=== PATIENT | female | born 1980 | race American Indian/Alaskan Native ===

== ENCOUNTER 2017-11-05 01:37 | Emergency (ER) | payer BC, OTHER ==
[2017-11-05 01:44] VITALS: BMI 30.7
--- NOTE | 2017-11-05 01:59 | ED PDOC ---
Arrival/HPI - General Chief Complaint: Back Pain Time Seen by Provider: 11/05/17 01:44 Historian: Patient - History of Present Illness Narrative History of Present Illness (Text): 11/05/17 01:57 A 37 year old female, whose past medical history includes HTM, presents to the emergency department for a complaint of left upper back pain and right leg pain. The patient states that she has been experiencing the left upper back pain since this morning. She notes right leg pain has been persistent for the past few days. The patient states that she recently had a stress test and echocardiogram done recently. She notes that she has a family history of blood clots. The patient denies fevers, chills, headache, dizziness, chest pain, shortness of breath, dyspnea on exertion, cough, abdominal pain, nausea, vomiting, diarrhea, neck pain, urinary/bowel changes, or any other complaint. PMD: Dr. Cristi Berg Time/Duration: Other (This Morning) Symptom Onset: Sudden Symptom Course: Unchanged Activities at Onset: Rest, Light Context: Home Past Medical History - Provider Review Nursing Documentation Reviewed: Yes - Infectious Disease Hx of Infectious Diseases: None - Cardiac Hx Hypertension: Yes - Hematological/Oncological Hx Anemia: Yes (Fe Def due to menometrorrhagia- pending OBGYN f/u for elective Hyst next wk) - Musculoskeletal/Rheumatological Hx Falls: No - Gastrointestinal Hx Pancreatitis: Yes - Psychiatric Hx Depression: No Hx Substance Use: No - Surgical History Hx Section: Yes Hx Cholecystectomy: Yes Other/Comment: uterus - Anesthesia Hx Anesthesia: Yes Hx Anesthesia Reactions: No Hx Malignant Hyperthermia: No - Suicidal Assessment Feels Threatened In Home Enviroment: No Family/Social History - Physician Review Nursing Documentation Reviewed: Yes Family/Social History: No Known Family HX Smoking Status: Never Smoked Hx Alcohol Use: Yes Hx Substance Use: No Hx Substance Use Treatment: No Allergies/Home Meds Allergies/Adverse Reactions: Allergies No Known Allergies Allergy (Verified 07/09/14 11:55) Home Medications: Home Meds Medication Instructions Recorded Confirmed Aspirin [Aspirin Chewable] 1 tab PO DAILY 11/05/17 11/05/17 Metoprolol Tartrate [Lopressor] 1 tab PO DAILY 11/05/17 11/05/17 Review of Systems - Review of Systems Constitutional: absent: Fevers, Night Sweats ENT: absent: Sore Throat Respiratory: absent: SOB, Cough Cardiovascular: absent: Chest Pain, DC Gastrointestinal: absent: Abdominal Pain, Stool Changes, Diarrhea, Nausea, Vomiting Genitourinary Female: absent: Urine Output Changes Musculoskeletal: Back Pain (Left upper back pain. ), Other (Right leg pain). absent: Neck Pain Neurological: absent: Headache, Dizziness Physical Exam - Physical Exam Narrative Physical Exam (Text): 0 Vital Signs Reviewed: Yes Vital Signs Temp Pulse Resp BP Pulse Ox 11/05/17 01:38 98.3 F 78 18 142/93 H 99 Temperature: Afebrile Blood Pressure: Normal Pulse: Regular Respiratory Rate: Normal Appearance: Positive for: Well-Appearing, Non-Toxic, Comfortable Pain Distress: None Mental Status: Positive for: Alert and Oriented X 3 - Systems Exam Head: Present: Atraumatic, Normocephalic Pupils: Present: PERRL Extroacular Muscles: Present: EOMI Conjunctiva: Present: Normal Mouth: Present: Moist Mucous Membranes Neck: Present: Normal Range of Motion Respiratory/Chest: Present: Clear to Auscultation, Good Air Exchange. No: Respiratory Distress, Accessory Muscle Use Cardiovascular: Present: Regular Rate and Rhythm, Normal S1, S2. No: Murmurs Abdomen: No: Tenderness, Distention, Peritoneal Signs Back: Present: Other (Left parathoracic spinal teenderness.) Upper Extremity: Present: Normal Inspection. No: Cyanosis, Edema Lower Extremity: Present: Normal Inspection. No: Edema Neurological: Present: GCS=15, CN II-XII Intact, Speech Normal Skin: Present: Warm, Dry, Normal Color. No: Rashes Psychiatric: Present: Alert, Oriented x 3, Normal Insight, Normal Concentration Medical Decision Making ED Course and Treatment: 11/05/17 02:00 Impression: A 37 year old female presents to the emergency department for a complaint of right leg pain and left upper back pain. Plan: -- EKG -- Lower Extremity Ultrasound -- Chest X-ray -- Labs -- Urinalysis -- Tylenol -- Reassess and disposition Progress Notes: 11/05/17 04:04: Patient notes that she is anemic with a hemoglobin of 9 due to heavy menstrual bleeding. Patient is offered a transfusion, she declines and is requesting to be discharged. Reevaluation: On reevaluation the patient feels better and is in no acute distress. I have discussed the results and plan with the patient, who expresses understanding. Patient given the opportunity to ask question, all questions were answered and there is agreement with the plan to discharge. Patient is stable for discharge. Patient was instructed to follow up with physician/clinic in 1-2 days or return if symptoms persist/worsen or new concerning symptoms arise. 11/05/17 19:51 pt reaassesed pain improved. cxr neg as read by me. labs unremakrable. stable for dc. - Lab Interpretations Lab Results: 11/05/17 02:40 11/05/17 02:40 Lab Results 11/05/17 03:20: Urine Color Yellow, Urine Appearance Clear, Urine pH 6.0, Ur Specific [place] 1.025, Urine Protein Negative, Urine Glucose (UA) Negative, Urine Ketones Negative, Urine Blood Trace-intact H, Urine Nitrate Negative, Urine Bilirubin Negative, Urine Urobilinogen 0.2, Ur Leukocyte Esterase Negative , Urine RBC 0 - 2, Urine WBC 0 - 2, Ur Epithelial Cells 0 - 2, Urine Bacteria Few 11/05/17 02:40: Sodium 141, Potassium 4.1, Chloride 107, Carbon Dioxide 24, Anion Gap 15, BUN 11, Creatinine 0.6 L, Est GFR ( Amer) > 60, Est GFR ( Non-Af Amer) > 60, Random Glucose 118 H, Calcium 8.9, Magnesium 1.8, Total Bilirubin 0.3, AST 34, ALT 26, Alkaline Phosphatase 81, Lactate Dehydrogenase 733 H, Total Creatine Kinase 151, Troponin I < 0.01, Total Protein 7.3, Albumin 3.8, Globulin 3.5, Albumin/Globulin Ratio 1.1 11/05/17 02:40: PT 12.3, INR 1.08, APTT 24.0 L, D-Dimer, Quantitative < 200 11/05/17 02:40: WBC 6.0, RBC 4.05, Hgb 8.7 L, Hct 28.8 L, MCV 71.1 L, MCH 21.5 L , MCHC 30.2 L, RDW 16.9 H, Plt Count 322, MPV 8.4, Gran % 49.3 L, Lymph % (Auto ) 39.5 H, [place] % (Auto) 7.5 H, Eos % (Auto) 2.5, Baso % (Auto) 1.2, Gran # 2.97 , Lymph # (Auto) 2.4, [place] # (Auto) 0.5, Eos # (Auto) 0.2, Baso # (Auto) 0.07 I have reviewed the lab results: Yes - RAD Interpretation Radiology Orders: 11/05/17 01:57 DUPLEX LOWER EXTRM VEIN BILAT [US] Stat 11/05/17 01:59 CHEST TWO VIEWS (PA/LAT) [RAD] Stat - EKG Interpretation Interpreted by ED Physician: Yes Type: 12 lead EKG - Medication Orders Current Medication Orders: Discontinued Medications Acetaminophen (Tylenol 325mg Tab) 975 mg PO STAT STA Stop: 11/05/17 01:59 Last Admin: 11/05/17 02:49 Dose: 975 mg - Scribe Statement The provider has reviewed the documentation as recorded by the Garima White Provider Scribe Attestation: All medical record entries made by the Scribe were at my direction and personally dictated by me. I have reviewed the chart and agree that the record accurately reflects my personal performance of the history, physical exam, medical decision making, and the department course for this patient. I have also personally directed, reviewed, and agree with the discharge instructions and disposition. Disposition/Present on Arrival - Present on Arrival Any Indicators Present on Arrival: No History of DVT/PE: No History of Uncontrolled Diabetes: No Urinary Catheter: No History of Decub. Ulcer: No History Surgical Site Infection Following: None - Disposition Have Diagnosis and Disposition been Completed?: Yes Diagnosis: Anemia, Back pain, Leg cramps Disposition: HOME/ ROUTINE Disposition Time: 07:00 Condition: STABLE Discharge Instructions (ExitCare): Upper Back Pain (DC), Nocturnal (Nighttime) Leg Cramps (DC), Normocytic Normochromic Anemia Additional Instructions: please follow up with your doctor. return to er with worsening symptoms or concerns. Prescriptions: Naproxen 500 mg PO BID PRN #14 tab PRN Reason: Pain, Mild (1-3) Referrals: Aurora Berg DO [Primary Care Provider] - Follow up with primary Forms: [facility] ([place])
[2017-11-05 02:12] VITALS: BP 142/93; PULSE 78; RESP 18; TEMP 98.3; O2SAT 99
[2017-11-05 02:47] LABS: BASO # 0.07 K/mm3 (0.0-2.0); BASO % 1.2 % (0.0-3.0); EOS # 0.2 (0.0-0.7); EOS % 2.5 % (1.5-5.0); GRAN # 2.97 (1.4-6.5); GRAN % 49.3 % (50.0-68.0); HEMOGLOBIN 8.7 g/dL (12.0-16.0); LYMPH # 2.4 (1.2-3.4); LYMPH % 39.5 % (22.0-35.0); MEAN CELL VOLUME 71.1 fl (80.0-105.0); MEAN CORPUSCULAR HEMOGLOBIN 21.5 pg (25.0-35.0); MEAN CORPUSCULAR HGB CONC 30.2 g/dl (31.0-37.0); MEAN PLATELET VOLUME 8.4 fl (7.0-11.0); MONO # 0.5 (0.1-0.6); MONO % 7.5 % (1.0-6.0); RBC 4.05 10^6/uL (3.5-6.1); RED CELL DISTRIBUTION WIDTH 16.9 % (11.5-14.5)
[2017-11-05 02:57] LABS: ALB/GLOB RATIO 1.1 (1.1-1.8); ALBUMIN 3.8 g/dL (3.0-4.8); CALCIUM 8.9 mg/dL (8.4-10.5); GFR AFRICAN-AMERICAN > 60; GFR NON-AFRICAN AMERICAN > 60
[2017-11-05 03:04] LABS: INR 1.08 (0.93-1.08); PROTHROMBIN TIME 12.3 SECONDS (9.4-12.5)
[2017-11-05 03:05] LABS: D DIMER < 200 ng/mL (0-243)
[2017-11-05 03:08] LABS: TROPONIN I < 0.01 ng/mL
[2017-11-05 03:34] LABS: URINE BILIRUBIN NEGATIVE (NEGATIVE); URINE BLOOD TRACE-INTACT (NEGATIVE); URINE GLUCOSE (UA) NEGATIVE (NEGATIVE); URINE LEUKOCYTE ESTERASE NEGATIVE Leu/uL (NEGATIVE); URINE PROTEIN NEGATIVE mg/dL (<30 mg/dL); URINE UROBILINOGEN 0.2 E.U./dL (<1 E.U./dL)
[2017-11-05 03:35] LABS: URINE APPEARANCE CLEAR (CLEAR); URINE COLOR YELLOW (YELLOW)
[2017-11-05 03:37] LABS: ALT/SGPT 26 U/L (7-56); AST/SGOT 34 U/L (14-36); BLOOD UREA NITROGEN 11 mg/dL (7-21)
[2017-11-05 04:16] LABS: URINE BACTERIA FEW (NEG); URINE EPITHELIAL CELLS 0 - 2 /hpf (0-5); URINE RBC 0 - 2 /hpf (0-2); URINE WBC 0 - 2 /hpf (0-6)
--- NOTE | 2017-11-05 09:17 | RAD ---
HISTORY: cp COMPARISON: 03/06/2012 TECHNIQUE: Chest PA and lateral FINDINGS: LUNGS: No active pulmonary disease. PLEURA: No significant pleural effusion identified. No pneumothorax apparent. CARDIOVASCULAR: Normal. OSSEOUS STRUCTURES: No significant abnormalities. VISUALIZED UPPER ABDOMEN: Normal. OTHER FINDINGS: None. IMPRESSION: No active disease.
--- NOTE | 2017-11-06 18:39 | US ---
HISTORY: Leg pain and swelling. Evaluate for DVT PHYSICIAN(S): Calin Kim MD. TECHNIQUE: Duplex sonography and color-flow Doppler with graded compression were used to evaluate the deep venous systems of both lower extremities. FINDINGS: The visualized deep venous systems of both lower extremities are sonographically normal and compressible. Normal wave forms and augmentation are seen. There is no sonographic evidence for deep venous thrombosis in the visualized segments of both lower extremities. IMPRESSION: No sonographic evidence for deep venous thrombosis in the visualized segments of both lower extremities.
== END 2017-11-05 04:22 | disposition home or self-care (01) ==
LOC: ED 01:37
DX: D64.9 Anemia, unspecified (principal); M54.6 Pain in thoracic spine; R25.2 Cramp and spasm

== ENCOUNTER 2018-03-02 09:45 | Observation (INO) | payer BC, OTHER ==
[~2018-03-02 09:45] MED LIST: DiphenhydrAMINE 50 mg/ml Inj IVP ONE
[2018-03-02] MEDS ORDERED: Sodium Chloride 0.9% 1,000 ML IV STA (11:12)
[2018-03-02 11:52] LABS: URINE BILIRUBIN NEGATIVE (NEGATIVE); URINE BLOOD SMALL (NEGATIVE); URINE GLUCOSE (UA) NEGATIVE (NEGATIVE); URINE LEUKOCYTE ESTERASE NEGATIVE Leu/uL (NEGATIVE); URINE PROTEIN NEGATIVE mg/dL (<30 mg/dL); URINE UROBILINOGEN 0.2 E.U./dL (<1 E.U./dL)
[2018-03-02 11:56] LABS: URINE APPEARANCE CLEAR (CLEAR); URINE COLOR YELLOW (YELLOW)
[2018-03-02 11:59] LABS: URINE BACTERIA MANY (NEG); URINE EPITHELIAL CELLS MANY /hpf (0-5); URINE WBC 0 - 2 /hpf (0-6)
[2018-03-02 12:03] LABS: BASO # 0.04 K/mm3 (0.0-2.0); BASO % 0.8 % (0.0-3.0); EOS # 0.1 (0.0-0.7); EOS % 2.1 % (1.5-5.0); GRAN # 2.03 (1.4-6.5); GRAN % 42.6 % (50.0-68.0); HEMOGLOBIN 10.3 g/dL (12.0-16.0); LYMPH # 2.2 (1.2-3.4); LYMPH % 45.9 % (22.0-35.0); MEAN CELL VOLUME 72.4 fl (80.0-105.0); MEAN CORPUSCULAR HEMOGLOBIN 21.7 pg (25.0-35.0); MEAN CORPUSCULAR HGB CONC 29.9 g/dl (31.0-37.0); MEAN PLATELET VOLUME 8.3 fl (7.0-11.0); MONO # 0.4 (0.1-0.6); MONO % 8.6 % (1.0-6.0); RBC 4.75 10^6/uL (3.5-6.1); RED CELL DISTRIBUTION WIDTH 20.2 % (11.5-14.5); WHITE BLOOD COUNT 4.8 10^3/ul (4.5-11.0)
--- NOTE | 2018-03-02 12:16 | CT ---
Date of service: 03/02/2018 PROCEDURE: CT HEAD WITHOUT CONTRAST. HISTORY: Headache COMPARISON: 10/10/2012. TECHNIQUE: Axial computed tomography images were obtained through the head/brain without intravenous contrast. Radiation dose: Total exam DLP = 900.96 mGy-cm. This CT exam was performed using one or more of the following dose reduction techniques: Automated exposure control, adjustment of the mA and/or kV according to patient size, and/or use of iterative reconstruction technique. FINDINGS: HEMORRHAGE: No intracranial hemorrhage. BRAIN: Horn-white matter differentiation is preserved. There is no mass, mass effect or abnormal extra-axial fluid collection. There is no territorial infarction. The midline sagittal structures are normal. VENTRICLES: The ventricles are normal in size, shape and configuration. CALVARIUM: The skull base and calvarium are normal. PARANASAL SINUSES: Predominantly clear. MASTOID AIR CELLS: Predominantly clear. OTHER FINDINGS: None. IMPRESSION: No acute intracranial abnormality.
--- NOTE | 2018-03-02 12:28 | ED PDOC ---
Arrival/HPI - General Chief Complaint: Syncope Time Seen by Provider: 03/02/18 11:11 Historian: Patient - History of Present Illness Narrative History of Present Illness (Text): 03/02/18 11:05 37 year old female, whose past medical history includes anemia and syncopal episodes, who presents to the Emergency department complaining of not feeling well and feeling weak all over for the last couple of days, and a pulsing headache toward front of head. Patient notes she has been having really bad migraines. Patient states she was out of work last year due to the syncopal episodes, noting she never found out the reason for them and still having same symptoms as before. Patient states she is sometimes dizzy, based on how she m oves and says she has never been diagnosed with vertigo. Patient notes no significant relief from Motrin, and has to take Excedrin (usually 2 at a time). Patient states that she frequently has pulsating headaches at anterior and posterior of head. Patient notes sensitivity to light, some blurred vision, dizziness on standing, non-reproducable left-sided intermittent chest pain at rest and shortness of breath only when going up stairs. Patient denies any recent trauma, numbness, tingling, current nausea, nausea, abdominal pain, or any other complaints. PMD: Dr. Aurora Berg Neurologist: [place] [place] Time/Duration: > week (pt notes feeling unwell and weakness all over since past few days) Symptom Onset: Gradual Symptom Course: Unchanged Activities at Onset: Light Past Medical History - Provider Review Nursing Documentation Reviewed: Yes - Infectious Disease Hx of Infectious Diseases: None - Cardiac Hx Cardiac Disorders: Yes Hx Hypertension: Yes - Pulmonary Hx Respiratory Disorders: No - Neurological Hx Neurological Disorder: Yes Hx Migraine: Yes Hx Syncope: Yes - HEENT Hx HEENT Disorder: No - Renal Hx Renal Disorder: No - Endocrine/Metabolic Hx Endocrine Disorders: No - Hematological/Oncological Hx Blood Disorders: Yes Hx Anemia: Yes - Integumentary Hx Dermatological Disorder: No - Musculoskeletal/Rheumatological Hx Musculoskeletal Disorders: No - Gastrointestinal Hx Gastrointestinal Disorders: Yes Hx Pancreatitis: Yes - Genitourinary/Gynecological Hx Genitourinary Disorders: No - Psychiatric Hx Psychophysiologic Disorder: Yes Hx Anxiety: Yes Hx Depression: Yes Hx Substance Use: No - Surgical History Hx Cholecystectomy: Yes - Anesthesia Hx Anesthesia: Yes Hx Anesthesia Reactions: No Hx Malignant Hyperthermia: No - Suicidal Assessment Feels Threatened In Home Enviroment: No Family/Social History - Physician Review Nursing Documentation Reviewed: Yes Family/Social History: No Known Family HX Smoking Status: Never Smoked Hx Alcohol Use: No Hx Substance Use: No Hx Substance Use Treatment: No Allergies/Home Meds Allergies/Adverse Reactions: Allergies No Known Allergies Allergy (Verified 03/02/18 15:59) Home Medications: Home Meds Medication Instructions Recorded Confirmed RX: Aspirin [Aspirin Chewable] 1 tab PO DAILY 11/05/17 03/02/18 RX: Metoprolol Tartrate [Lopressor] 1 tab PO DAILY 11/05/17 03/02/18 Review of Systems - Physician Review All systems were reviewed & negative as marked: Yes - Review of Systems Constitutional: Fatigue (pt notes not feeling well/weak all over for last couple of days), Other (pt denies recent trauma). absent: Normal Eyes: Vision Changes (pt notes some blurred vision), Photophobia (patient notes sensitivity to light). absent: Normal Respiratory: SOB (pt notes SOB, but only when going up stairs). absent: Normal Cardiovascular: Chest Pain (pt notes non-reproducible left-sided intermittent chest pain at rest), Syncope (pt notes history of syncopal episodes). absent: Normal Gastrointestinal: absent: Abdominal Pain, Nausea (pt denies current nausea) Neurological: Headache (pt notes she frequently has pulsating headaches, both at anterior and posterior of head. notes recent severe migraines.), Dizziness (pt notes dizziness on standing. states she is sometimes dizzy depending on how she moves), Other (pt denies numbness/tingling). absent: Normal Physical Exam Vital Signs Reviewed: Yes Vital Signs Temp Pulse Resp BP Pulse Ox 03/02/18 10:01 74 03/02/18 09:46 98.9 F 83 16 144/90 100 Temperature: Afebrile Blood Pressure: Normal Pulse: Regular Respiratory Rate: Normal Appearance: Positive for: Well-Appearing, Non-Toxic, Comfortable Pain Distress: None Mental Status: Positive for: Alert and Oriented X 3 - Systems Exam Head: Present: Atraumatic, Normocephalic Pupils: Present: PERRL Extroacular Muscles: Present: EOMI Conjunctiva: Present: Normal Mouth: Present: Moist Mucous Membranes Neck: Present: Normal Range of Motion Respiratory/Chest: Present: Clear to Auscultation, Good Air Exchange. No: Respiratory Distress, Accessory Muscle Use Cardiovascular: Present: Regular Rate and Rhythm, Normal S1, S2. No: Murmurs Abdomen: No: Tenderness, Distention, Peritoneal Signs Back: Present: Normal Inspection Upper Extremity: Present: Normal Inspection. No: Cyanosis, Edema Lower Extremity: Present: Normal Inspection. No: Edema Neurological: Present: GCS=15, CN II-XII Intact, Speech Normal, Motor Func Grossly Intact, Normal Sensory Function (motor senses equal upper and lower. ), Gait Normal, Other (normal finger to nose test. No pronator drift. No Romber noted. No facial assymetry ) Skin: Present: Warm, Dry, Normal Color. No: Rashes Psychiatric: Present: Alert, Oriented x 3, Normal Insight, Normal Concentration Medical Decision Making ED Course and Treatment: 03/02/18 11:05 Impression: 37 year old female presents to the Emergency department complaining of not feeling well and feeling weak all over for the last couple of days, and a pulsating headache toward front of head. Differential Diagnosis included but are not limited to: - Vasovagal syncope - Orthostatic hypotension - TIA - Seizure - Brugada syndrome* Plan: -- CT of head w/o contrast -- EKG -- Labs -- CBC (with differential) -- Antivert, 25 mg PO -- Reglan, 10 mg IVP -- IV fluids -- POC Urine test -- Urinalysis w/micro -- Reassess and disposition Prior Visits: Notes and results from previous visits were reviewed. Patient was last seen in the emergency department on 12/12/17 for complaints of intermittent back pain, chest pain, and SOB that began the week prior to arrival. Patient was discharged home in fair condition and directed to return if symptoms recurred. Progress Notes: 03/02/18 13:53 Labs reviewed with no outstanding findings. CTH unremarkable for intracranial findings. Patient reassessed and does not feel better despite interventions taken in the ED. Spoke to Dr. Irwin(internal medicine) who accepts patient onto his service and requests Dr. Nash(neurology) for consult. - Lab Interpretations Lab Results: 03/02/18 11:45 Lab Results 03/02/18 11:45: Urine Color Yellow, Urine Appearance Clear, Urine pH 6.0, Ur Specific [place] >= 1.030, Urine Protein Negative, Urine Glucose (UA) Negative, Urine Ketones Negative, Urine Blood Small H, Urine Nitrate Negative, Urine Bilirubin Negative, Urine Urobilinogen 0.2, Ur Leukocyte Esterase Negative, Urine RBC 5 - 10, Urine WBC 0 - 2, Ur Epithelial Cells Many, Urine Bacteria Many 03/02/18 11:45: WBC 4.8, RBC 4.75, Hgb 10.3 L, Hct 34.4 L, MCV 72.4 L, MCH 21.7 L, MCHC 29.9 L, RDW 20.2 H, Plt Count 331, MPV 8.3, Gran % 42.6 L, Lymph % (Auto) 45.9 H, [place] % (Auto) 8.6 H, Eos % (Auto) 2.1, Baso % (Auto) 0.8, Gran # 2.03, Lymph # (Auto) 2.2, [place] # (Auto) 0.4, Eos # (Auto) 0.1, Baso # (Auto) 0.04 - RAD Interpretation Narrative RAD Interpretations (Text): CT of head reviewed by radiologist, shows: Dictator : Mabel Ash MD Report Date : 03/02/2018 12:14:11 FINDINGS: HEMORRHAGE: No intracranial hemorrhage. BRAIN: Horn-white matter differentiation is preserved. There is no mass, mass effect or abnormal extra-axial fluid collection. There is no territorial infarction. The midline sagittal structures are normal. VENTRICLES: The ventricles are normal in size, shape and configuration. CALVARIUM: The skull base and calvarium are normal. PARANASAL SINUSES: Predominantly clear. MASTOID AIR CELLS: Predominantly clear. OTHER FINDINGS: None. IMPRESSION: No acute intracranial abnormality. Radiology Orders: 03/02/18 11:11 HEAD W/O CONTRAST [CT] Stat Guest Services Coordinator: Radiologist - EKG Interpretation EKG Interpretation (Text): 03/02/18 EKG: Ordered, reviewed, and independently interpreted the EKG. Rate : 73 BPM Interpretation : Normal sinus rhythm. No ST elevations. Interpreted by ED Physician: Yes Type: 12 lead EKG - Medication Orders Current Medication Orders: Discontinued Medications Sodium Chloride (Sodium Chloride 0.9%) 1,000 mls @ 999 mls/hr IV .Q1H1M STA Stop: 03/02/18 12:12 Last Admin: 03/02/18 12:00 Dose: 999 mls/hr eMAR Start Stop Document 03/02/18 12:00 GMD (Rec: 03/02/18 12:00 GMD [id number]) Intravenous Solution Start Date 03/02/18 Start Time 12:00 End Date 03/02/18 End time 13:01 Total Infusion Time 61 Meclizine HCl (Antivert) 25 mg PO STAT STA Stop: 03/02/18 11:13 Last Admin: 03/02/18 12:00 Dose: 25 mg Metoclopramide HCl (Reglan) 10 mg IVP STAT STA Stop: 03/02/18 11:13 Last Admin: 03/02/18 12:00 Dose: 10 mg IVP Administration Document 03/02/18 12:00 GMD (Rec: 03/02/18 12:00 GMD [id number]) Charges for Administration # of IVP Administrations 1 - Scribe Statement The provider has reviewed the documentation as recorded by the Scribdallin Shaw All medical record entries made by the Andreaibdallin were at my direction and personally dictated by me. I have reviewed the chart and agree that the record accurately reflects my personal performance of the history, physical exam, medical decision making, and the department course for this patient. I have also personally directed, reviewed, and agree with the discharge instructions and disposition. Disposition/Present on Arrival - Present on Arrival Any Indicators Present on Arrival: No History of DVT/PE: No History of Uncontrolled Diabetes: No Urinary Catheter: No History of Decub. Ulcer: No History Surgical Site Infection Following: None - Disposition Have Diagnosis and Disposition been Completed?: Yes Diagnosis: Headache Disposition: HOSPITALIZED
[2018-03-02 13:04] LABS: ALB/GLOB RATIO 1.1 (1.1-1.8); ALBUMIN 4.1 g/dL (3.0-4.8); ALT/SGPT 17 U/L (7-56); AST/SGOT 27 U/L (14-36); BLOOD UREA NITROGEN 8 mg/dL (7-21); CALCIUM 9.3 mg/dL (8.4-10.5); GFR NON-AFRICAN AMERICAN > 60
[2018-03-02 13:15] LABS: TROPONIN I < 0.01 ng/mL
[2018-03-02] MEDS ORDERED: DiphenhydrAMINE 50 mg/ml Inj IVP STA (13:49)
[2018-03-02 14:44] VITALS: O2SAT 98
--- NOTE | 2018-03-02 16:01 | CARD ---
APPROVED REPORT Date of service: 03/02/2018 EKG Measurement Heart [id number] [id number] <Conclusion> Normal sinus rhythm Anteroseptal infarct, age undetermined Abnormal ECG
[2018-03-02] MEDS ORDERED: methylPREDNISolone 500 MG in Sodium Chloride 0.9% 100 ML IVPB ONE (17:16)
[2018-03-02] MEDS ORDERED: Magnesium Sulfate 1 gm in D5W 1 GM/100 ML BAG IVPB ONE (17:18)
[2018-03-02] MEDS ORDERED: Apap-Butalbital-Caffeine 325-50-40mg Tab PO PRN (17:18)
[2018-03-02 18:09] VITALS: BMI 30.9
[2018-03-02] MEDS ORDERED: Pneumococcal 23-Valent Vaccine IM ONE (18:09)
[2018-03-02] MEDS ORDERED: Influenza Vaccine 60 mcg/0.5 mL SYR (4YR UP) IM ONE (18:09)
--- NOTE | 2018-03-02 18:44 | CON ---
DATE: 03/02/2018 CHIEF COMPLAINT: Headache and syncope. HISTORY OF PRESENT ILLNESS: This is a 37-year-old woman with history of anemia and syncopal episode in the past, history of migraine headaches, who is not feeling well over the last couple of days, had a pulsating diffuse pressure headache frontally and diffusing throughout with photophobia, phonophobia, nausea, but no . [place] dizzy and lightheaded and had passed out. She also had some mild spinning sensation of the room. She takes Excedrin Migraine, which usually helps with the headaches, but did not help and sumatriptan did not work for headache and she came in for further evaluation. She is not on any preventive medications. She works as a human resources. She is not on any control, but does have a heavy menstrual cycle. Currently, no focal weakness or paresthesias of the extremities. CAT scan of the head showed no acute intracranial abnormality. She did not exhibit any signs of TIA at all. PAST MEDICAL HISTORY: Migraines; syncopal episode in the past; anemia, getting iron infusions. SOCIAL HISTORY: No illicit drug use, smoking or EtOH abuse. ALLERGIES: NO KNOWN DRUG ALLERGIES. MEDICATIONS: Reviewed by nurses' reconciliation sheet. FAMILY HISTORY: Noncontributory. LABORATORY DATA: Sodium is 135, potassium 4, chloride of 104, carbon dioxide of 27, BUN of 8, creatinine 0.6, random glucose of 104. PHYSICAL EXAMINATION: VITAL SIGNS: Temperature 98.9, pulse rate of 86, blood pressure 140/70, respiratory rate of 18, oxygen saturation 98% by room air. GENERAL: The patient is sitting up in bed, in no acute distress. HEENT: Atraumatic, normocephalic. PERRLA. Extraocular muscles intact. NECK: Supple. No JVD, no adenopathy noted. LUNGS: Clear. No adventitious sounds. HEART: S1, S2. Normal rate and rhythm. No murmurs, rubs or gallops. ABDOMEN: Soft, nontender and nondistended. Bowel sounds are present. EXTREMITIES: No clubbing. No cyanosis. Peripheral pulses 2+ felt bilaterally. NEUROLOGIC: The patient is alert and oriented to person, place, month and year. Speech is fluent without any errors. Cranial nerves II through XII are intact. Motor exam: Moves all extremities equally. Toes are downgoing bilaterally. Sensory exam: Light touch, pinprick, proprioception and vibration are intact. DTRs are 2+ throughout. Coordination: [id number] intact. No dysmetria noted. Gait is deferred for now. IMPRESSION: Her headache is more of an acute complicated migraine causing the syncopal event with some mild vertiginous component. This is not a transient ischemic attack. At this time, I will recommend, 1. We will give one headache cocktail of one does of Solu-Medrol 250 mg, magnesium sulfate 1 g IV x1 dose, metoclopramide, Benadryl IV 50 mg, Toradol 30 IV x1 dose for the acute onset, which will help break her headache. 2. Fioricet 1 tab every 4 hours for the acute onset of headache. 3. Advise IV hydration. 4. Advise sleep hygiene and a migraine diet and will follow up as an outpatient. Once again, she is clinically stable. Onofre Nash MD
[2018-03-02 20:03] VITALS: TEMP 98
[2018-03-03] MEDS ORDERED: Pantoprazole 40 mg EC Tab PO STA (04:16)
[2018-03-03 06:09] VITALS: BP 159/104
--- NOTE | 2018-03-03 06:47 | CP.PCM.HP ---
<Renee Adan - Last Filed: 03/03/18 10:52> History of Present Illness - History of Present Illness History of Present Illness: H&P for Abhilash Rhodes PGY3 This is a 37yo female with past medical history of Iron deficiency anemia, menhorrhagia, syncope who came to ED for weakness and headache for 2 days. Patient reports she was having pain in her bilateral forehead that did not radiate. When she has that feeling, she feels like she has to pass out so she decided to sit down. She did not pass out, lose consciousness or hit her head. Patient was feeling dizzy and the pain did not go away so she decided to come to the ED. She has this symptoms when she has a very bad migraine. She denies vision changes, tonic-clonic movements, tongue biting, incontinence, fever/chills, numbness/tingling, nausea/vomiting/diarrhea, dysuria or hematuria. Past medical history: Iron deficiency anemia, menhorrhagia, syncope Past surgical history: , uterine cyst removal Home meds: Reviewed as per MAR Allergies: NKDA Social history: Occasional EtOH use. Denies tobacco or drug use. Lives with family. Family history: father: unknown, Mom- CHF, Maternal grandma: breast Ca Present on Admission - Present on Admission Any Indicators Present on Admission: No Review of Systems - Review of Systems All systems: reviewed and no additional remarkable complaints except Review of Systems: 12 point ROS reviewed as per HPI and is otherwise negative Past Patient History - Infectious Disease Hx of Infectious Diseases: None - Past Social History Smoking Status: Never Smoked - CARDIAC Hx Cardiac Disorders: Yes Hx Hypertension: Yes - PULMONARY Hx Respiratory Disorders: Yes Hx Bronchitis: Yes - NEUROLOGICAL Hx Neurological Disorder: Yes Hx Dizziness: Yes (SYNCOPE) Hx Migraine: Yes - HEENT Hx HEENT Problems: No - RENAL Hx Chronic Kidney Disease: No - ENDOCRINE/METABOLIC Hx Endocrine Disorders: No - HEMATOLOGICAL/ONCOLOGICAL Hx Blood Disorders: Yes Hx Anemia: Yes - INTEGUMENTARY Hx Dermatological Problems: No - MUSCULOSKELETAL/RHEUMATOLOGICAL Hx Musculoskeletal Disorders: No Hx Falls: No - GASTROINTESTINAL Hx Gastrointestinal Disorders: Yes Hx Gall Bladder Disease: Yes (CHOLECYSTECTOMY) Hx Pancreatitis: Yes - GENITOURINARY/GYNECOLOGICAL Hx Genitourinary Disorders: Yes (HEAVY MENSTRUAL BLEED.IRON INFUSIONS.CYST REMOVED UTERUS,C/S X 1) - PSYCHIATRIC Hx Psychophysiologic Disorder: Yes Hx Anxiety: Yes Hx Depression: Yes Hx Substance Use: No - SURGICAL HISTORY Hx Surgeries: Yes (CYST REMOVED UTERUS,C/S X 1) Hx Cholecystectomy: Yes - ANESTHESIA Hx Anesthesia: Yes Hx Anesthesia Reactions: No Hx Malignant Hyperthermia: No Meds Home Medications: Home Medication List Medication Instructions Recorded Confirmed Type Acetaminophen/Butalbital/Caf 1 tab PO Q6 PRN #15 tab 03/03/18 Rx [Fioricet] Cyclobenzaprine [Cyclobenzaprine 10 mg PO Q8H PRN #15 tab 03/03/18 Rx HCl] Allergies/Adverse Reactions: Allergies Allergy/AdvReac Type Severity Reaction Status Date / Time No Known Allergies Allergy Verified 03/02/18 15:59 Physical Exam - Constitutional Appears: No Acute Distress - Head Exam Head Exam: ATRAUMATIC, NORMAL INSPECTION, NORMOCEPHALIC - Eye Exam Eye Exam: Normal appearance, PERRL Pupil Exam: NORMAL ACCOMODATION, PERRL - ENT Exam ENT Exam: Mucous Membranes Moist - Respiratory Exam Respiratory Exam: Clear to Auscultation Bilateral, NORMAL BREATHING PATTERN. absent: Rales, Rhonchi, Wheezes - Cardiovascular Exam Cardiovascular Exam: REGULAR RHYTHM, +S1, +S2. absent: Gallop, Rubs, Systolic Murmur - GI/Abdominal Exam GI & Abdominal Exam: Normal Bowel Sounds, Soft. absent: Guarding, Rebound, Rigid, Tenderness - Extremities Exam Extremities exam: Positive for: normal inspection. Negative for: calf tenderness, pedal edema - Neurological Exam Neurological exam: Alert, CN II-XII Intact, Oriented x3 - Psychiatric Exam Psychiatric exam: Normal Affect, Normal Mood - Skin Skin Exam: Dry, Warm Results - Vital Signs Recent Vital Signs: Last Vital Signs Temp 98.0 F 03/02/18 20:02 Pulse 110 H 03/03/18 02:00 Resp 20 03/02/18 20:02 BP 159/104 H 03/03/18 06:06 Pulse Ox 98 03/02/18 20:02 - Labs Result Diagrams: 03/02/18 11:45 03/02/18 12:40 Labs: Laboratory Results - last 24 hr 03/02/18 03/02/18 03/02/18 11:45 11:45 11:45 WBC 4.8 RBC 4.75 Hgb 10.3 L Hct 34.4 L MCV 72.4 L MCH 21.7 L MCHC 29.9 L RDW 20.2 H Plt Count 331 MPV 8.3 Gran % 42.6 L Lymph % (Auto) 45.9 H [place] % (Auto) 8.6 H Eos % (Auto) 2.1 Baso % (Auto) 0.8 Gran # 2.03 Lymph # (Auto) 2.2 [place] # (Auto) 0.4 Eos # (Auto) 0.1 Baso # (Auto) 0.04 Sodium Potassium Chloride Carbon Dioxide Anion Gap BUN Creatinine Est GFR ( Amer) Est GFR (Non-Af Amer) Random Glucose Calcium Total Bilirubin AST ALT Alkaline Phosphatase Troponin I Total Protein Albumin Globulin Albumin/Globulin Ratio Beta HCG, Quant < 2.39 Urine Color Yellow Urine Appearance Clear Urine pH 6.0 Ur Specific [place] >= 1.030 Urine Protein Negative Urine Glucose (UA) Negative Urine Ketones Negative Urine Blood Small H Urine Nitrate Negative Urine Bilirubin Negative Urine Urobilinogen 0.2 Ur Leukocyte Esterase Negative Urine RBC 5 - 10 Urine WBC 0 - 2 Ur Epithelial Cells Many Urine Bacteria Many 03/02/18 12:40 WBC RBC Hgb Hct MCV MCH MCHC RDW Plt Count MPV Gran % Lymph % (Auto) [place] % (Auto) Eos % (Auto) Baso % (Auto) Gran # Lymph # (Auto) [place] # (Auto) Eos # (Auto) Baso # (Auto) Sodium 135 Potassium 4.0 Chloride 104 Carbon Dioxide 27 Anion Gap 9 L BUN 8 Creatinine 0.6 L Est GFR ( Amer) > 60 Est GFR (Non-Af Amer) > 60 Random Glucose 104 Calcium 9.3 Total Bilirubin 0.4 AST 27 ALT 17 Alkaline Phosphatase 65 Troponin I < 0.01 Total Protein 7.7 Albumin 4.1 Globulin 3.6 Albumin/Globulin Ratio 1.1 Beta HCG, Quant Urine Color Urine Appearance Urine pH Ur Specific [place] Urine Protein Urine Glucose (UA) Urine Ketones Urine Blood Urine Nitrate Urine Bilirubin Urine Urobilinogen Ur Leukocyte Esterase Urine RBC Urine WBC Ur Epithelial Cells Urine Bacteria Assessment & Plan - Assessment and Plan (Free Text) Assessment: 1. Migraine 2. Iron deficiency anemia Plan: Labs and imaging reviewed. Neurology was consulted and patient was given steroids, Magnesium IV, Toradol, and Benadryl. Patient reports she feels much better. There were no focal neurological deficits seen on exam. Patient is hemodynamically stable and pain is controlled. She will be discharged home with Flexeril and Fiorecet. Patient verablized and agreed with discharge plan. Patient does have a neurologist that she follows up regularly as outpatient. Case seen, discussed and reviewed with Dr. Winnie Adan PGY3 - Date & Time Date: 03/03/18 Time: 11:00 <César Zhou - Last Filed: 03/05/18 19:44> Results - Vital Signs Recent Vital Signs: Last Vital Signs Temp 98.0 F 03/03/18 06:00 Pulse 85 03/03/18 06:00 Resp 18 03/03/18 06:00 BP 159/104 H 03/03/18 06:06 Pulse Ox 98 03/03/18 06:00 - Labs Result Diagrams: 03/02/18 11:45 03/02/18 12:40 Assessment & Plan - Assessment and Plan (Free Text) Plan: Pt seen and examined by me. This is a late entry. I have reviewed the note by the medical director. The case was discussed and reviewed with the resident. I reviewed the medications and labs. Pt with Migrain BALDWIN. It is better but not resolved. Pt will f/u with neurology. She will get medications to take home and will be discharged. She will f/u with PMD.
[2018-03-03 09:36] VITALS: PULSE 85; RESP 18
== END 2018-03-03 11:13 | disposition home or self-care (01) ==
LOC: ED 09:45 → ERH 13:47 → 3RNO 16:22
PROVIDERS: ADMIT Internal Medicine Nephrology; ATTEND Internal Medicine Nephrology
DX: G43.109 Migraine with aura, not intractable, without status migrainosus (principal); R55 Syncope and collapse; D50.9 Iron deficiency anemia, unspecified; I10 Essential (primary) hypertension; N92.0 Excessive and frequent menstruation with regular cycle; Z80.3 Family history of malignant neoplasm of breast; Z82.49 Family history of ischemic heart disease and other diseases of the circulatory system
CPT/HCPCS: 70450; 80053; 81001; 84484; 84702; 85025; 93005; 96361; 96365; 96368; 96375; 99285; G0378; J1200; J1885; J2765; J2930; J3475; J7030

== ENCOUNTER 2018-05-14 01:04 | Emergency (ER) | payer BC ==
[2018-05-14 02:11] VITALS: BMI 30.7
[2018-05-14 02:15] VITALS: RESP 18; TEMP 98.9
--- NOTE | 2018-05-14 02:35 | ED PDOC ---
Arrival/HPI - General Chief Complaint: Lower Extremity Problem/Injury Time Seen by Provider: 05/14/18 01:53 Historian: Patient - History of Present Illness Narrative History of Present Illness (Text): 05/14/18 02:32 37 year old female, whose past medical history includes hypertension, who presents to the emergency department complaining of left leg discomfort x 2-3 days. Patietn states she has no issues ambulating but is worried for a blood clot. Patient denies any fevers, chills, chest pain, shortness of breath, abdominal pain, nausea, vomiting, diarrhea, back pain, neck pain, urinary symptoms, headache, dizziness, or any other complaint. Time/Duration: < week Symptom Onset: Gradual Symptom Course: Unchanged Activities at Onset: Light Context: Home Past Medical History - Provider Review Nursing Documentation Reviewed: Yes - Infectious Disease Hx of Infectious Diseases: None - Cardiac Hx Cardiac Disorders: Yes Hx Hypertension: Yes - Pulmonary Hx Respiratory Disorders: No - Neurological Hx Neurological Disorder: Yes Hx Migraine: Yes Hx Syncope: Yes - HEENT Hx HEENT Disorder: No - Renal Hx Renal Disorder: No - Endocrine/Metabolic Hx Endocrine Disorders: No - Hematological/Oncological Hx Blood Disorders: Yes Hx Anemia: Yes - Integumentary Hx Dermatological Disorder: No - Musculoskeletal/Rheumatological Hx Musculoskeletal Disorders: No - Gastrointestinal Hx Gastrointestinal Disorders: Yes Hx Pancreatitis: Yes - Genitourinary/Gynecological Hx Genitourinary Disorders: No - Psychiatric Hx Psychophysiologic Disorder: Yes Hx Anxiety: Yes Hx Depression: Yes Hx Substance Use: No - Surgical History Hx Cholecystectomy: Yes - Anesthesia Hx Anesthesia: Yes Hx Anesthesia Reactions: No Hx Malignant Hyperthermia: No - Suicidal Assessment Feels Threatened In Home Enviroment: No Family/Social History - Physician Review Nursing Documentation Reviewed: Yes Family/Social History: Unknown Family HX Smoking Status: Never Smoked Hx Alcohol Use: No Hx Substance Use: No Hx Substance Use Treatment: No Allergies/Home Meds Allergies/Adverse Reactions: Allergies No Known Allergies Allergy (Verified 03/02/18 15:59) Home Medications: Home Meds Medication Instructions Recorded Confirmed Aspirin [Aspirin Chewable] 1 tab PO DAILY 11/05/17 03/02/18 Metoprolol Tartrate [Lopressor] 1 tab PO DAILY 11/05/17 03/02/18 Review of Systems - Physician Review All systems were reviewed & negative as marked: Yes - Review of Systems Constitutional: Normal Eyes: Normal ENT: Normal Respiratory: Normal Cardiovascular: Normal Gastrointestinal: Normal Genitourinary Female: Normal Musculoskeletal: Normal Skin: Normal Neurological: Normal Endocrine: Normal Hemo/Lymphatic: Normal Psychiatric: Normal Physical Exam Vital Signs Reviewed: Yes Vital Signs Temp Pulse Resp BP Pulse Ox 05/14/18 02:10 98.9 F 91 H 18 140/88 97 Temperature: Afebrile Blood Pressure: Normal Pulse: Regular Respiratory Rate: Normal Appearance: Positive for: Well-Appearing, Non-Toxic, Comfortable Pain Distress: None Mental Status: Positive for: Alert and Oriented X 3 - Systems Exam Head: Present: Atraumatic, Normocephalic Pupils: Present: PERRL Extroacular Muscles: Present: EOMI Conjunctiva: Present: Normal Mouth: Present: Moist Mucous Membranes Neck: Present: Normal Range of Motion Respiratory/Chest: Present: Clear to Auscultation, Good Air Exchange. No: Respiratory Distress, Accessory Muscle Use Cardiovascular: Present: Regular Rate and Rhythm, Normal S1, S2. No: Murmurs Abdomen: No: Tenderness, Distention, Peritoneal Signs Back: Present: Normal Inspection Upper Extremity: Present: Normal Inspection. No: Cyanosis, Edema Lower Extremity: Present: Tenderness (mild palpable tenderness/ superficial skin eccymosis to left posterior calf area). No: Edema, Yolanda's Sign Neurological: Present: GCS=15, CN II-XII Intact, Speech Normal, Motor Func Grossly Intact, Normal Sensory Function Skin: Present: Warm, Dry, Normal Color. No: Rashes Psychiatric: Present: Alert, Oriented x 3, Normal Insight, Normal Concentration Medical Decision Making ED Course and Treatment: 05/14/18 02:36 Impression: 37 year old female presents to the Emergency department complaining of left leg discomfort x -3 days. Plan: -- US left lower extrem. -- Reassess and disposition Progress Notes: 05/14/18 04:49 Doppler U/S lower extremities-No DVT - RAD Interpretation Radiology Orders: 05/14/18 02:29 DUPLEX LOWER EXTRM VEIN BILAT [US] Stat - Scribe Statement The provider has reviewed the documentation as recorded by the Scribe Aurelia Roman All medical record entries made by the Scribe were at my direction and personally dictated by me. I have reviewed the chart and agree that the record accurately reflects my personal performance of the history, physical exam, medical decision making, and the department course for this patient. I have also personally directed, reviewed, and agree with the discharge instructions and disposition. Disposition/Present on Arrival - Present on Arrival Any Indicators Present on Arrival: No History of DVT/PE: No History of Uncontrolled Diabetes: No Urinary Catheter: No History of Decub. Ulcer: No History Surgical Site Infection Following: None - Disposition Have Diagnosis and Disposition been Completed?: Yes Diagnosis: Muscle strain, lower leg, Contusion Disposition: HOME/ ROUTINE Disposition Time: 04:51 Patient Plan: Discharge Condition: GOOD Discharge Instructions (ExitCare): Lower Extremity Muscle Strain (DC), Contusion (DC) Additional Instructions: Rest the affected area/advil as directed/follow up with your doctor Forms: [facility] (Syrian), WORK NOTE
[2018-05-14 05:08] VITALS: BP 137/60; PULSE 85; O2SAT 100
== END 2018-05-14 05:00 | disposition home or self-care (01) ==
LOC: ED 01:04
DX: S86.912A Strain of unspecified muscle(s) and tendon(s) at lower leg level, left leg, initial encounter (principal); S80.12XA Contusion of left lower leg, initial encounter; X58.XXXA Exposure to other specified factors, initial encounter; I10 Essential (primary) hypertension

== ENCOUNTER 2018-06-28 18:59 | Emergency (ER) | payer SELFPAY ==
[2018-06-28 19:05] VITALS: RESP 18
[2018-06-28 19:08] VITALS: BMI 32.5
--- NOTE | 2018-06-28 20:14 | ED PDOC ---
Arrival/HPI - General Chief Complaint: Lower Extremity Problem/Injury Time Seen by Provider: 06/28/18 19:17 Historian: Patient - History of Present Illness Narrative History of Present Illness (Text): 06/28/18 19:20 Yolanda Marmolejo is a 37 year old female, whose past medical history includes anemia and hypertension, who presents to the Emergency department complaining of leg pain. Patient states she has been experiencing intermittent left leg pain for the last few days. Patient denies any fever, chills, chest pain, shortness of breath, nausea, vomiting, diarrhea, urinary symptoms, back pain, neck pain, headache, dizziness, or any other complaints. Symptom Onset: Gradual Symptom Course: Unchanged Activities at Onset: Light Context: Home Past Medical History - Provider Review Nursing Documentation Reviewed: Yes - Infectious Disease Hx of Infectious Diseases: None - Reproductive Currently : No - Cardiac Hx Cardiac Disorders: Yes Hx Hypertension: Yes - Pulmonary Hx Respiratory Disorders: No - Neurological Hx Neurological Disorder: Yes Hx Migraine: Yes Hx Syncope: Yes - HEENT Hx HEENT Disorder: No - Renal Hx Renal Disorder: No - Endocrine/Metabolic Hx Endocrine Disorders: No - Hematological/Oncological Hx Blood Disorders: Yes Hx Anemia: Yes - Integumentary Hx Dermatological Disorder: No - Musculoskeletal/Rheumatological Hx Musculoskeletal Disorders: No - Gastrointestinal Hx Gastrointestinal Disorders: Yes Hx Pancreatitis: Yes - Genitourinary/Gynecological Hx Genitourinary Disorders: No - Psychiatric Hx Psychophysiologic Disorder: Yes Hx Anxiety: Yes Hx Depression: Yes Hx Substance Use: No - Surgical History Hx Cholecystectomy: Yes - Anesthesia Hx Anesthesia: Yes Hx Anesthesia Reactions: No Hx Malignant Hyperthermia: No - Suicidal Assessment Feels Threatened In Home Enviroment: No Family/Social History - Physician Review Nursing Documentation Reviewed: Yes Family/Social History: Unknown Family HX Smoking Status: Never Smoked Hx Alcohol Use: No Hx Substance Use: No Hx Substance Use Treatment: No Allergies/Home Meds Allergies/Adverse Reactions: Allergies No Known Allergies Allergy (Verified 06/28/18 19:02) Home Medications: Home Meds Medication Instructions Recorded Confirmed Aspirin [Aspirin Chewable] 1 tab PO DAILY 11/05/17 06/28/18 Metoprolol Tartrate [Lopressor] 50 mg PO DAILY 11/05/17 06/28/18 Review of Systems - Physician Review All systems were reviewed & negative as marked: Yes - Review of Systems Constitutional: Normal. absent: Fevers Eyes: Normal ENT: Normal Respiratory: Normal. absent: SOB, Cough Cardiovascular: Normal. absent: Chest Pain Gastrointestinal: Normal. absent: Abdominal Pain, Diarrhea, Nausea, Vomiting Genitourinary Female: Normal. absent: Dysuria, Frequency, Hematuria, Urine Output Changes Musculoskeletal: Other (+left leg pain). absent: Back Pain, Neck Pain Skin: Normal. absent: Rash Neurological: Normal. absent: Headache, Dizziness Endocrine: Normal Hemo/Lymphatic: Normal Psychiatric: Normal Physical Exam Vital Signs Reviewed: Yes Vital Signs Temp Pulse Resp BP Pulse Ox 06/28/18 19:03 98.3 F 87 18 143/95 H 98 Temperature: Afebrile Blood Pressure: Normal Pulse: Regular Respiratory Rate: Normal Appearance: Positive for: Well-Appearing, Non-Toxic, Comfortable Pain Distress: None Mental Status: Positive for: Alert and Oriented X 3 - Systems Exam Head: Present: Atraumatic, Normocephalic Pupils: Present: PERRL Extroacular Muscles: Present: EOMI Conjunctiva: Present: Normal Mouth: Present: Moist Mucous Membranes Neck: Present: Normal Range of Motion Respiratory/Chest: Present: Clear to Auscultation, Good Air Exchange. No: Respiratory Distress, Accessory Muscle Use Cardiovascular: Present: Regular Rate and Rhythm, Normal S1, S2. No: Murmurs Abdomen: No: Tenderness, Distention, Peritoneal Signs Back: Present: Normal Inspection Upper Extremity: Present: Normal Inspection. No: Cyanosis, Edema Lower Extremity: Present: Normal Inspection, NORMAL PULSES, Normal ROM, Neurovascularly Intact, Capillary Refill < 2 s. No: Edema, CALF TENDERNESS, Cyanosis, Yolanda's Sign, Tenderness, Swelling, Erythema, Deformity, Temperature Abnormalties Neurological: Present: GCS=15, CN II-XII Intact, Speech Normal Skin: Present: Warm, Dry, Normal Color. No: Rashes Psychiatric: Present: Alert, Oriented x 3, Normal Insight, Normal Concentration Medical Decision Making ED Course and Treatment: 06/28/18 19:20 Impression: 37 year old female complaining of intermittent left leg pain. Plan: -- US Duplex Lower Extremities -- EKG -- Reassess and disposition Prior Visits: Notes and results from previous visits were reviewed. Progress Notes: Reviewed EKG, NSR at [address] bpm[address] Non-specific ST/T wave changes. 06/28/18 21:18 Pt requesting bloodwork. CBC, CMP, troponin, and Urinalysis ordered. 06/28/18 23:34 CT Lumbar Spine: DISCS/DEGENERATIVE CHANGES: T12/L1: No significant central canal or neural foraminal stenosis. Minimal diffuse disc bulge. L1/L2: No significant central canal or neural foraminal stenosis. Minimal diffuse disc bulge. L2/L3: No significant central canal or neural foraminal stenosis. Minimal diffuse disc bulge. L3/4: No significant central canal or neural foraminal stenosis. Mild diffuse disc bulge. L4/5: No high-grade central canal or neural foraminal stenosis. Mild to moderate diffuse disc bulge with some flattening of the thecal sac anteriorly. L5/S1: No significant central canal or neural foraminal stenosis. Mild to moderate diffuse disc bulge. BONES: There are mild multilevel bony degenerative spine changes. No evidence for acute fracture or subluxation in the lumbar spine. SOFT TISSUES: The soft tissues are unremarkable. ABDOMINAL AND PELVIC STRUCTURES Surgical clips in the right upper quadrant compatible of cholecystectomy. Mild atherosclerosis in the abdominal aorta. MISCELLANEOUS: Incidentally noted normal appendix in the right lower quadrant. IMPRESSION: 1. There are mild multilevel bony degenerative spine changes. 2. Diffuse discogenic degenerative changes most severe at L4-L5 where there is mild to moderate diffuse disc bulge with some flattening of the thecal sac anteriorly. No high-grade central canal or foraminal stenoses. 3. No acute fracture or subluxation in the lumbar spine. Electronically signed on Jun 28, 2018 11:23:30 PM EST by: Rafael Cardona M.D., DEONDRE Certified By [facility] & [facility] Fellowship Trained MRI and CT Specialist - RAD Interpretation Radiology Orders: 06/28/18 19:29 DUPLEX LOWER EXTRM VEIN LEFT [US] Stat - EKG Interpretation Interpreted by ED Physician: Yes Type: 12 lead EKG - Scribe Statement The provider has reviewed the documentation as recorded by the Garima Alvarez Provider Scribe Attestation: All medical record entries made by the Scribe were at my direction and personally dictated by me. I have reviewed the chart and agree that the record accurately reflects my personal performance of the history, physical exam, medical decision making, and the department course for this patient. I have also personally directed, reviewed, and agree with the discharge instructions and disposition. Disposition/Present on Arrival - Present on Arrival Any Indicators Present on Arrival: No History of DVT/PE: No History of Uncontrolled Diabetes: No Urinary Catheter: No History of Decub. Ulcer: No History Surgical Site Infection Following: None - Disposition Have Diagnosis and Disposition been Completed?: Yes Diagnosis: Leg pain, left, Urinary tract infection Disposition: HOME/ ROUTINE Disposition Time: 23:50 Condition: GOOD Discharge Instructions (ExitCare): Urinary Tract Infections in Adults, Muscle and Bone Pain (DC) Prescriptions: Cephalexin [Keflex] 500 mg PO BID #14 capsule Referrals: Aurora Berg DO [Primary Care Provider] - Follow up with primary Forms: [facility] [employer] [facility] (Azeri)
[2018-06-28 21:07] VITALS: BP 140/92; PULSE 84; TEMP 98.2; O2SAT 100
[2018-06-28 21:58] LABS: ALB/GLOB RATIO 1.2 (1.1-1.8); ALBUMIN 4.5 g/dL (3.0-4.8); ALT/SGPT 24 U/L (7-56); AST/SGOT 42 U/L (14-36); BLOOD UREA NITROGEN 12 mg/dL (7-21); CALCIUM 9.3 mg/dL (8.4-10.5); GFR NON-AFRICAN AMERICAN > 60
[2018-06-28 21:59] LABS: BASO # 0.08 K/mm3 (0.0-2.0); BASO % 1.1 % (0.0-3.0); EOS # 0.3 (0.0-0.7); EOS % 4.4 % (1.5-5.0); HEMOGLOBIN 9.7 g/dL (12.0-16.0); LYMPH # 3.5 (1.2-3.4); MEAN CELL VOLUME 74.1 fl (80.0-105.0); MEAN CORPUSCULAR HEMOGLOBIN 21.7 pg (25.0-35.0); MEAN CORPUSCULAR HGB CONC 29.2 g/dl (31.0-37.0); MEAN PLATELET VOLUME 9.2 fl (7.0-11.0); MONO # 0.6 (0.1-0.6); MONO % 8.4 % (1.0-6.0); RBC 4.48 10^6/uL (3.5-6.1); URINE BILIRUBIN NEGATIVE (NEGATIVE); URINE BLOOD SMALL (NEGATIVE); URINE GLUCOSE (UA) NEGATIVE (NEGATIVE); URINE LEUKOCYTE ESTERASE NEGATIVE Leu/uL (NEGATIVE); URINE PROTEIN 30 mg/dL (<30 mg/dL); URINE UROBILINOGEN 0.2 E.U./dL (<1 E.U./dL); WHITE BLOOD COUNT 7.3 10^3/uL (4.5-11.0)
[2018-06-28 22:05] LABS: URINE APPEARANCE CLEAR (CLEAR); URINE COLOR YELLOW (YELLOW)
[2018-06-28 22:09] LABS: TROPONIN I < 0.01 ng/mL
[2018-06-28 22:21] LABS: URINE BACTERIA MOD /hpf
--- NOTE | 2018-06-29 10:54 | CT ---
Date of service: 06/28/2018 PROCEDURE: CT Lumbar Spine without contrast HISTORY: back pain COMPARISON: Lumbar spine CT without contrast 02/21/2012. TECHNIQUE: Axial computed tomography images were obtained of the lumbar spine without the use of intravenous contrast. Coronal and sagittal reformatted images were created and reviewed. Radiation dose: Total exam DLP = 1018.66 mGy-cm. This CT exam was performed using one or more of the following dose reduction techniques: Automated exposure control, adjustment of the mA and/or kV according to patient size, and/or use of iterative reconstruction technique. FINDINGS: VERTEBRAE: Unremarkable. No fracture. Normal alignment. DISCS/SPINAL CANAL/NEURAL FORAMINA: L1-2: Unremarkable. L2-3: Unremarkable. L3-4: Minimal circumferential disc bulging without stenosis identified. L4-5: Mild circumferential disc bulging without significant stenosis identified. Limited facet joint degenerative arthropathy. L5-S1: Unremarkable. PARASPINAL SOFT TISSUES: Unremarkable. Incidentally, no hydronephrosis appreciated bilaterally. OTHER FINDINGS: None. IMPRESSION: No bony central canal or neural foraminal stenosis throughout. No fracture or spondylolisthesis. Minimal circumferential disc bulging is seen at L3-4, mild at L4-5, without significant stenosis resulting. Normal curvature. No destructive bony lesion appreciable. Stable examination. No interval gross disc herniation. MRI is available follow-up which provides greater soft tissue resolution than CT can (particularly in evaluation of the intervertebral discs). Concordant preliminary report from [facility], 06/28/2018, 11:23 p.m..
--- NOTE | 2018-06-29 11:25 | CARD ---
APPROVED REPORT Date of service: 06/28/2018 EKG Measurement Heart [id number] <Conclusion> Normal sinus rhythm Poor R Progression in V Leads Probably Clockwise Rotation.
--- NOTE | 2018-06-30 21:16 | US ---
PROCEDURE: Left lower extremity venous US HISTORY: Leg pain and swelling. Evaluate for DVT. PHYSICIAN(S): Calin Kim MD. TECHNIQUE: Duplex sonography and color-flow Doppler with graded compression were used to evaluate the deep venous system of the left lower extremity. FINDINGS: The visualized deep venous system of the left lower extremity is sonographically normal and compressible. Normal wave forms and augmentation are seen. There is no sonographic evidence for deep venous thrombosis in the visualized segments of the left lower extremity. IMPRESSION: 1. No sonographic evidence for deep venous thrombosis in the visualized segments of the left lower extremity.
== END 2018-06-28 23:20 | disposition home or self-care (01) ==
LOC: ED 18:59
DX: M79.605 Pain in left leg (principal); N39.0 Urinary tract infection, site not specified; I10 Essential (primary) hypertension